=== PATIENT | female | born 1960 | race Native Hawaiian/Other Pacific Islander ===

== ENCOUNTER 2020-11-09 10:04 | Outpatient (CLI) | payer OTHER | END 2020-11-09 19:03 | disposition home or self-care (01) | LOC: MAMMO 10:04 | PROVIDERS: ATTEND Nurse Practitioner Family | DX: Z12.31 Encounter for screening mammogram for malignant neoplasm of breast (principal) ==

== ENCOUNTER 2020-11-28 09:48 | Outpatient (CLI) | payer OTHER | END 2020-11-28 19:02 | disposition home or self-care (01) | LOC: MAMMO 09:48 → US 10:00 → MAMMO 10:00 → US 11:00 → MAMMO 19:02 | PROVIDERS: ATTEND Nurse Practitioner Family | DX: R92.8 Other abnormal and inconclusive findings on diagnostic imaging of breast (principal) ==